=== PATIENT | female | born 1960 | race Caucasian/White ===

== ENCOUNTER 2021-03-31 08:59 | Day surgery (SDC) | payer OTHER, SELFPAY ==
[~2021-03-31] VITALS: Ht 154.9 cm; Wt 65.3 kg
[2021-03-31] MEDS ORDERED: fentaNYL citrate 0.05 MG/ML VIAL ONE (11:15)
[2021-03-31] MEDS ORDERED: LIDOCAINE 2% 100 MG/5 ML UJET TP ONE ×2 (11:16→11:35)
[2021-03-31] MEDS ORDERED: LIDOCAINE 2% 100 MG/5 ML UJET TP SCH (11:37)
[2021-03-31] MEDS ORDERED: fentaNYL citrate 0.05 MG/ML VIAL IVP ONE (11:45)
== END 2021-03-31 12:37 | disposition home or self-care (01) ==
LOC: MDS 08:59 → MMU 08:59 → MDS 12:37
PROVIDERS: ATTEND Internal Medicine Gastroenterology
DX: Z12.11 Encounter for screening for malignant neoplasm of colon (principal); I10 Essential (primary) hypertension; Z79.899 Other long term (current) drug therapy; Z20.822 Contact with and (suspected) exposure to COVID-19
CPT/HCPCS: 45378; 87426; J3010